=== PATIENT | female | born 1935 | race Caucasian/White ===

== ENCOUNTER 2017-01-08 13:37 | Inpatient (IN) | payer MEDICARE, MEDICAID ==
[~2017-01-08] VITALS: Ht 163.8 cm; Wt 92.2 kg
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
--- NOTE | ~2017-01-08 | PR ---
[place], [place] PROGRESS NOTE NAME: NELSON FIELD UNIT #: [id number] ROOM: 309 DOCTOR: JACK SMITH BIRTHDATE: [birth year] DOS: 01/12/2017 CHIEF COMPLAINT: "Good morning." SUMMARY OF VISIT: The patient was assessed in the dining room where she engaged in conversation, stated that overall she is feeling good. Denies any side effects of the medication. States that her sleep and appetite are fine. No voiced complaints from nursing. MENTAL STATUS: She is alert and oriented to person, place, I do not think time. Her mood lability is improving. Her mood is definitely trending more towards euthymic. Affect is appropriate. No overt signs of auditory or visual hallucinations, delusions, paranoia. PLAN: I increased her Exelon yesterday. I will probably go ahead and plan on maxing out over the weekend. She is tolerating the dose of Depakote that she is on right now and it is having a positive effect on her mood lability and impulsivity. So I am going keep the Depakote where it is at. Focus on Exelon over the next couple of days and plan to discharge to [facility] once stable. MARYJANE SMITH CNP CM:PNTRANS [id number] JACK SMITH 01/13/17 0126 interface
--- NOTE | ~2017-01-08 | PR ---
[place], [place] PROGRESS NOTE NAME: NELSON FIELD UNIT #: [id number] ROOM: 309 DOCTOR: JACK SMITH BIRTHDATE: [birth year] DOS: 01/11/2017 SUMMARY OF VISIT: The patient assessed in the dining room, engaged in minimal conversation. No voiced complaints from nursing. MENTAL STATUS: The patient is alert and oriented to person only, still having some mood lability. No side effects from the medications. No overt signs of auditory or visual hallucinations, significant decline in short term memory. PLAN: I am going to increase her Exelon to 9.5 mg q. day. She seems to be tolerating the Depakote. I am going to increase the Exelon today and if we need to adjust the Depakote tomorrow, we can do that as well. We will continue to try to engage in individual and rios milieu therapy with the plan to discharge to [facility] once stable. MARYJANE SMITH CNP CM:PNTRANS 0820 JACK SMITH 01/12/17 0047 interface
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
--- NOTE | ~2017-01-08 | PR ---
[place], [place] PROGRESS NOTE NAME: NELSON FIELD UNIT #: [id number] ROOM: 309 DOCTOR: JACK SMITH BIRTHDATE: [birth year] DOS: 01/10/2017 CHIEF COMPLAINT: "Good morning." SUMMARY OF VISIT: The patient was assessed in the dining room where she was eating breakfast. She had no voiced complaints. The only thing that she alluded to was that she thinks her sleep was a little bit better, fairly decent appetite. No issues per nursing. MENTAL STATUS: Alert and oriented to person, I think place, not time. Mood still can be somewhat labile. She is tolerating the medication changes so far. PLAN: Was continue with the Exelon 4.6 mg q. day. She was just started on Depakote. I want to see how she does over the next 24 hours and I can adjust that accordingly if her impulsivity and lability continues. Her Namenda was just increased. I am going to wait another day before increasing that any further. We will continue to try to engage in individual and rios milieu therapy with the plan to return her back to [facility] once stable. MARYJANE SMITH CNP CM:PNTRANS 0809 JACK SMITH 01/10/17 4829 interface
--- NOTE | ~2017-01-08 | PR ---
[place], [place] PROGRESS NOTE NAME: NELSON FIELD UNIT #: [id number] ROOM: 309 DOCTOR: JACK SMITH BIRTHDATE: [birth year] DOS: 01/13/2017 CHIEF COMPLAINT: "Good morning." SUMMARY OF VISIT: The patient was assessed in the dining room where she had finished her breakfast. It was brought to my attention that she refused to take her Depakote pill this morning when I asked her about it, she just said that it was too big, she had difficulty swallowing it, and it felt like it was always getting stuck in the back of her throat. Nursing has asked if I would be comfortable switching it over to Depakote Sprinkles which I have already done in the system. MENTAL STATUS: Alert and oriented to person, place, approximate time. Mood trending towards euthymic. Affect is much more appropriate. No overt signs of auditory or visual hallucinations, delusions or paranoia. PLAN: Again, I switched Depakote to Depakote Sprinkles it will be 250 mg b.i.d. and 500 mg at bedtime. Overall, there has been a significant improvement in her behaviors and her mood. I will go ahead and order a Depakote level for tomorrow, give us a baseline, so she is stable ; we can discharge as soon as the first week. MARYJANE SMITH CNP CM:PNTRANS [id number] JACK SMITH 01/13/17 1331 interface
--- NOTE | ~2017-01-08 | PR ---
[place], [place] PROGRESS NOTE NAME: NELSON FIELD UNIT #: [id number] ROOM: 309 DOCTOR: JOSELINE VIVEROS MD BIRTHDATE: [birth year] DOS: 01/15/2017 INTERVAL NOTE CHIEF COMPLAINT: "I want to go home." SUMMARY OF THE VISIT: The patient was interviewed as she was sitting in the dining area eating. She stopped and engaged readily in conversation, reporting that she is sleeping well and eating well. Her responses were tended to be short and simple at times, somewhat inappropriate. There was no agitation or aggression noted. MENTAL STATUS: She remains alert and oriented to self. It is unclear if she realizes she is in the hospital. She is certainly not oriented to time. Mood does seem to be more euthymic. Affect is more appropriate. There are no symptoms of hypomania or miranda. There are no auditory or visual hallucinations. No delusions, no paranoia. Short-term memory is exceedingly poor. PLAN: I will renew her Ativan in case she requires p.r.n. intervention. I will increase the Exelon patch to its maximum dose of 13.3 mg daily in an effort to improve or maintain ADLs, behavior and cognition. I will increase the Namenda from 5 mg twice daily to 5 mg in the morning and 10 mg at bedtime, also to attempt to improve or maintain ADLs, behavior and cognition, engage in individual and rios milieu activity, returning to her long-term care facility when stable. JOSELINE VIVEROS MD CM:PNTRANS 1041 JOSELINE VIVEROS MD 01/15/17 1041 interface
--- NOTE | ~2017-01-08 | PR ---
[place], [place] PROGRESS NOTE NAME: NELSON FIELD UNIT #: [id number] ROOM: 309 DOCTOR: JACK SMITH BIRTHDATE: [birth year] DOS: 01/14/2017 CHIEF COMPLAINT: "Good morning." SUMMARY OF VISIT: The patient was assessed in the dining room where she was drinking a cup of coffee waking up for the morning. She still a little bit sedated. She did require p.r.n. Ativan last night. She just became very anxious and fearful last night, could not explain as far as why, other than that nursing notes no other behaviors. MENTAL STATUS: She is alert and oriented to person, place, approximate time. Mood is still trending towards euthymic. Affect was appropriate. No overt signs of auditory or visual hallucinations, delusions or paranoia. PLAN: I did switch her Depakote to Depakote Sprinkles yesterday; she had missed 1 or 2 doses of the Depakote because the pill was too big for her to take. I do not know if this is contributing to maybe some of the anxiety and fearfulness that she had last night, we will see how she does over the next 24 hours. I did order a valproic acid level is not back yet, as soon as I get the results of that, we will go from there. MARYJANE SMITH CNP CM:PNTRANS [id number] JACK SMITH 01/14/171650 interface
[2017-01-08] MEDS ORDERED: ARICEPT5 M1 PO (13:48)
[2017-01-08] MEDS ORDERED: CELEXA20 MG PO (13:49)
[2017-01-08] MEDS ORDERED: JANUVIA100 MG PO (13:50)
[2017-01-08] MEDS ORDERED: MIRAPEX0.125 M1 PO (13:52)
[2017-01-08] MEDS ORDERED: MOBIC15 MG PO (13:54)
[2017-01-08] MEDS ORDERED: NAMENDA XR7 M1 PO (13:55)
[2017-01-08] MEDS ORDERED: SEROQUEL100 MG PO (13:56)
[2017-01-08] MEDS ORDERED: PRINIVIL10 MG PO (13:56)
[2017-01-08] MEDS ORDERED: SEROQUEL50 MG PO (13:57)
[2017-01-08] MEDS ORDERED: VITAMIN D1000 IU PO (13:58)
[2017-01-08] MEDS ORDERED: LEVEMIR10 ML SC (13:59)
[2017-01-08] MEDS ORDERED: NEURONTIN100 MG PO (14:00)
[2017-01-08] MEDS ORDERED: PRECOSE50 MG PO (14:01)
[2017-01-08] MEDS ORDERED: Meclizine25 MG PO (14:02)
[2017-01-08] MEDS ORDERED: HALDOL5 MG/M1 IM (14:03)
[2017-01-08] MEDS ORDERED: IBUPROFEN400 MG PO (14:03)
[2017-01-08] MEDS ORDERED: ANTI-DIARR1 MG/7.5 M PO (14:04)
[2017-01-08] MEDS ORDERED: MIRALAX POWDER255 GM PO (14:05)
[2017-01-08] MEDS ORDERED: TYLENOL325 M1 PO (14:05)
[2017-01-08] MEDS ORDERED: XANAX0.25 MG PO (14:08)
[2017-01-08 17:25] VITALS: BP 139/54
[2017-01-08 18:52] LABS: BILIRUBIN NEGATIVE (NEGATIVE); BLOOD NEGATIVE (NEGATIVE); CLARITY CLEAR (CLEAR); COLOR YELLOW (YELLOW); GLUCOSE NEGATIVE (NEGATIVE); KETONE NEGATIVE (NEGATIVE); LEUKO ESTERASE 1+ (NEGATIVE); NITRITE NEGATIVE (NEGATIVE); PROTEIN NEGATIVE (NEGATIVE); UROBILINOGEN 0.2 E.U./dl (0.2-1.0)
[2017-01-08 19:07] LABS: BACTERIA TRACE; MUCOUS TRACE; RBC 0-2 rbc/hpf (0-2); URINE REFLEX COMMENT YES (NO)
[2017-01-08 20:37] VITALS: BP 118/58; BP 143/43
[2017-01-09 07:47] VITALS: BP 136/58
[2017-01-09 08:06] LABS: BASO # 0.1 10*3/uL (0.0-0.1); BASO % 0.6 % (0.0-1.0); EOS # 0.1 10*3/uL (0.0-0.4); EOS % 1.5 % (1.0-4.0); HEMATOCRIT 40.8 % (37.0-47.0); HEMOGLOBIN 13.3 g/dl (12.0-16.0); LYMPH # 1.9 10*3/uL (1.3-4.4); LYMPH % 21.1 % (27.0-41.0); MEAN CELL VOLUME 90.3 fl (81.0-99.0); MEAN CORPUSCULAR HGB 29.4 pg (27.0-31.0); MEAN CORPUSCULAR HGB CONC 32.6 g/dl (33.0-37.0); MEAN PLATELET VOLUME 9.8 fl (9.6-12.3); MONO # 0.5 10*3/uL (0.1-1.0); MONO % 5.1 % (3.0-9.0); NEUT # 6.5 10*3/uL (2.3-7.9); NEUT % 71.3 % (47.0-73.0); PLATELET COUNT AUTOMATED 279 10*3/uL (130-400); RED BLOOD COUNT 4.52 10*6/uL (4.10-5.10); RED CELL DISTRI WIDTH 14.3 % (0-14.5); WHITE BLOOD COUNT 9.1 10*3/uL (4.8-10.8)
[2017-01-09 08:33] LABS: ALBUMIN 3.2 gm/dl (3.1-4.5); ALKALINE PHOSPHATASE 69 U/L (45-117); BILIRUBIN, TOTAL 0.6 mg/dl (0.2-1.0); BUN 15 mg/dl (7-24); CARBON DIOXIDE 29 mmol/L (21-32); CHLORIDE 108 mmol/L (98-107); CHOLESTEROL 144 mg/dL (<200); EST GLOM FILT AFRICAN AMERICAN > 60 ml/min; GLUCOSE 80 mg/dL (65-99); HDL CHOLESTEROL 61 mg/dl (40-60); LDL CHOLESTEROL 63 mg/dL (9-159); POTASSIUM 3.7 mmol/L (3.5-5.1); SGOT/AST 10 IU/L (3-35); SGPT/ALT 19 U/L (12-78); SODIUM 144 mmol/L (136-145); TOTAL PROTEIN 7.2 gm/dL (6.4-8.2); TRIGLYCERIDES 100 mg/dl (<150); VLDL CHOLESTEROL 20 mg/dL (6-40)
[2017-01-09 08:41] LABS: THYROID STIM HORMONE (HS) 0.928 uIU/ml (0.358-4.75)
[2017-01-09 09:06] LABS: VITAMIN D, 25-HYDROXY 41.8 ng/mL (30-100)
[2017-01-09 09:07] LABS: HEMOGLOBIN A1c 5.1 % (4.8-5.6)
[2017-01-09 20:24] VITALS: BP 140/70
[2017-01-10 07:47] VITALS: BP 146/60
[2017-01-10 19:57] VITALS: BP 143/64
[2017-01-11 07:44] VITALS: BP 116/56
[2017-01-11 20:01] VITALS: BP 140/90
[2017-01-12 07:52] VITALS: BP 132/53
[2017-01-12 19:38] VITALS: BP 151/79
[2017-01-13 07:30] VITALS: BP 125/56
[2017-01-13 19:50] VITALS: BP 136/47
[2017-01-14 07:40] VITALS: BP 123/50
[2017-01-14 20:27] VITALS: BP 129/67
[2017-01-15 07:38] VITALS: BP 137/60
[2017-01-15 20:48] VITALS: BP 145/69
[2017-01-16] MEDS ORDERED: GABAPENTIN100 M2 PO (07:52)
[2017-01-16] MEDS ORDERED: HUMALOG100 U/ML SC (07:52)
[2017-01-16] MEDS ORDERED: DIVALPROEX SOD125 M1 PO ×2 (07:52)
[2017-01-16 08:22] VITALS: BP 128/52
[2017-01-16] MEDS ORDERED: MEMANTINE HCL10 MG PO (08:23)
[2017-01-16] MEDS ORDERED: EXELON13.3 MG/21 T (08:23)
[2017-01-16] MEDS ORDERED: NAMENDA-5 PO (08:23)
== END 2017-01-16 15:38 | DRG 883 ==
LOC: 3N 13:37
PROVIDERS: Psychiatry & Neurology Psychiatry
DX: F63.81 Intermittent explosive disorder (principal); E11.40 Type 2 diabetes mellitus with diabetic neuropathy, unspecified; G30.9 Alzheimer's disease, unspecified; F02.80 Dementia in other diseases classified elsewhere, unspecified severity, without behavioral disturbance, psychotic disturbance, mood disturbance, and anxiety; F23 Brief psychotic disorder; I10 Essential (primary) hypertension; G25.81 Restless legs syndrome; M19.91 Primary osteoarthritis, unspecified site; F39 Unspecified mood [affective] disorder; E66.09 Other obesity due to excess calories; Z79.899 Other long term (current) drug therapy; Z68.34 Body mass index [BMI] 34.0-34.9, adult; Z79.4 Long term (current) use of insulin